=== PATIENT | female | born 1945 | race Asian ===

== ENCOUNTER 2016-11-14 02:49 | Emergency (ER) | payer SELFPAY ==
[~2016-11-14] VITALS: Ht 160 cm; Wt 69.4 kg
[~2016-11-14 02:49] MED LIST: APIX5TAB2 PO; DLT180CCR PO; METF-380 PO; OLME1TAB19 PO; SULF1TAB35 PO; TRAM-21 PO
[2016-11-14] MEDS ORDERED: morphine INJ 10 MG/ML 1ML (SYR OR VIAL) IM STA (03:05)
--- NOTE | 2016-11-14 03:30 | ED Upper Extremity ---
General Chief Complaint: Upper Extremity Stated Complaint: RT ARM & HAND PAIN Nursing Triage Note: Brought to ED with family reporting right shouler/arm pain. Hx of 2 months but worsened severely tonight Nursing Sepsis Screen: No Definite Risk Source: patient Exam Limitations: no limitations History of Present Illness Time seen by provider: 03:00 Initial Comments Here with complaint of right arm pain. She has had pain over the last couple of months but it was worse tonight. She did take an ibuprofen at 10 p.m. The pain then worsened and she came here for further evaluation. Denies chest pain , breathing problems, nausea, vomiting or sweating. Believes that this may emanate from the shoulder and radiates down the arm. She has had shoulder problems and had x-ray at her primary care doctor's office that did not show any concerning findings per the family. Denies any recent injury. Onset: this evening Severity: moderate Pain/Injury Location: right shoulder, right arm, right elbow, right forearm Method of Injury: unknown Modifying Factors: Improves With Immobilization, Worse With Movement Allergies and Home Medications Allergies Coded Allergies: No Known Drug Allergies (Unverified , 02/14/14) Home Medications Apixaban 5 Mg Tablet, 5 MG PO BID, #60 Ref 3 Prescribed by: JC CAMACHO on 12/01/14 1030 Diltiazem Hcl 180 Mg Cap, 180 MG PO DAILY, #30 Ref 3 Prescribed by: JC CAMACHO on 12/01/14 1030 Metformin Hcl 1,000 Mg Tablet, 1 EACH PO BID WITH MEALS, (Reported) Constitutional: see HPI, No chills, No fever Respiratory: no symptoms reported, No cough, No short of breath, No wheezing Cardiovascular: No palpitations Gastrointestinal: no symptoms reported, No nausea, No vomiting Musculoskeletal: see HPI, joint pain, joint swelling, muscle pain, muscle stiffness Skin: no symptoms reported Psychiatric/Neurological: No Symptoms Reported Past Gklzaas-Oxchcl-Byrcie Hx Patient Social History Alcohol Use: Denies Use Recreational Drug Use: No Smoking Status: Never a Smoker Recent Foreign Travel: No Contact w/Someone Who Travel: No Recent Infectious Disease Expo: No Recent Hopitalizations: No Immunizations Up To Date Date of Pneumonia Vaccine: Nov 30, 2012 Seasonal Allergies Seasonal Allergies: No Surgeries HX Surgeries: Yes (LYPOMA EXCISED) Surgeries: Lumpectomy Respiratory Hx Respiratory Disorders: No Cardiovascular Hx Cardiac Disorders: Yes Cardiac Disorders: Hypertension, Irregular Heartbeat Neurological Hx Neurological Disorders: No Reproductive System Hx Reproductive Disorders: No Sexually Transmitted Disease: No HIV/AIDS: No Genitourinary Hx Genitourinary Disorders: No Gastrointestinal Hx Gastrointestinal Disorders: No Musculoskeletal Hx Musculoskeletal Disorders: No Endocrine Hx Endocrine Disorders: Yes Endocrine Disorders: Diabetes, Non-Insulin dep HEENT HX ENT Disorders: No Cancer Hx Cancer: No Psychosocial Hx Psychiatric Problems: No Integumentary HX Skin/Integumentary Disorder: No Blood Transfusions Hx Blood Disorders: No Reviewed Nursing Assessment Reviewed/Agree w Nursing PMH: Yes Family Medical History Significant Family History: No Pertinent Family Hx Family Medial History: Hypertension 19 FATHER Physical Exam Vital Signs Vital Sign - Last 12Hours 11/14/16 02:54 Temp 97.6 Pulse 69 Resp 16 B/P (MAP) 179/84 Pulse Ox 95 O2 Delivery Room Air Capillary Refill : Less Than 3 Seconds General Appearance: WD/WN, mild distress HEENT: PERRL/EOMI, pharynx normal Neck: full range of motion, supple Cardiovascular: regular rate, rhythm, no murmur Respiratory: lungs clear, normal breath sounds Gastrointestinal: non tender, soft Back: normal inspection, no CVA tenderness, no vertebral tenderness Shoulder: limited ROM, soft tissue tenderness Elbow/Forearm: limited ROM, soft tissue tenderness Wrist: Yes pain (home dorsiflexion and palmar flexion) Hand: soft tissue tenderness Neurologic/Psychiatric: alert, oriented x 3 Skin: normal color, warm/dry Progress/Results/Core Measures Results/Orders My Orders Orders - RUDDY CARLSON MD Morphine Injection (Morphine Injection (11/14/16 03:05) Vital Signs/I&O Vital Sign - Last 12Hours 11/14/16 11/14/16 02:54 03:12 Temp 97.6 97.6 Pulse 69 Resp 16 B/P (MAP) 179/84 Pulse Ox 95 O2 Delivery Room Air Blood Pressure Mean: 115 Progress Note : Progress Note Seen and evaluated. Morphine 6 mg IM. Monitor patient. 0355: Overall improved. Discharged home with return precautions. Patient verbalize understanding instructions and agreement with plan. Departure Impression Impression: Primary Impression: Right arm pain Disposition: 01 HOME, SELF-CARE Condition: Improved Departure-Patient Inst. Decision time for Depature: 04:01 Referrals: EDWARD DRISCOLL DO (PCP/Family) Primary Care Physician Patient Instructions: Shoulder Pain (DC) Add. Discharge Instructions: All discharge instructions reviewed with patient and/or family. Voiced understanding. You may take ibuprofen 800 mg twice daily as needed for pain. Take other medication for severe pain. Follow-up with your this week for recheck and further evaluation. Return for worse pain, weakness, breathing problems, chest pain, vomiting or other concerns as needed. Scripts Hydrocodone/Acetaminophen (Hydrocodon -Acetaminophen 5-325) 1 Each Tablet 1 EACH PO Q6H Y for PAIN-MODERATE TO SEVERE, #12 TAB 0 Refills Prov: RUDDY CARLSON MD 11/14/16 RUDDY CARLSON MD Nov 14, 2016 03:30
[2016-11-14] MEDS ORDERED: HYDR-3812 PO (04:03)
[2016-11-14 04:47] VITALS: BP 133/71
== END 2016-11-14 04:07 | disposition home or self-care (01) ==
LOC: EDUNIT# 02:49 → ER 02:52
DX: M79.601 Pain in right arm (principal); I10 Essential (primary) hypertension; E11.9 Type 2 diabetes mellitus without complications; Z79.84 Long term (current) use of oral hypoglycemic drugs
CPT/HCPCS: 99282

== ENCOUNTER → 2017-03-27 | Outpatient (CLI) | payer MEDICARE, MEDICAID ==
[~2017-03-27] MED LIST changes: +HYDR-3812 PO
== END ==
LOC: RAD 11:38
PROVIDERS: ATTEND Family Medicine
DX: K29.60 Other gastritis without bleeding (principal); Z53.29 Procedure and treatment not carried out because of patient's decision for other reasons

== ENCOUNTER → 2017-06-08 | Outpatient (CLI) | payer MEDICARE, MEDICAID ==
[~2017-06-08] MED LIST changes: +ACHD5005 PO; +APIX5TAB PO; +CHOL400C9 PO; +CRAN500T2 PO; +DILT180C82 PO; +GLUC100016 PO; -HYDR-3812 PO; +HYDR25TA4 PO; +METF1000 PO; +OMEG-35 PO; +VITA150T PO
[2017-06-08 10:01] LABS: ALANINE AMINOTRANSFERASE 14 U/L (0-55); ALKALINE PHOSPHATASE 26 U/L (40-136); BILIRUBIN,TOTAL 0.4 MG/DL (0.1-1.0); BUN/CREATININE RATIO 32; CALCIUM 9.2 MG/DL (8.5-10.1); CARBON DIOXIDE 27 MMOL/L (21-32); CHLORIDE 106 MMOL/L (98-107); CHOLESTEROL 110 MG/DL (< 200); CREATININE SERUM 0.69 MG/DL (0.60-1.30); GFR ESTIMATED > 60; GLUCOSE 108 MG/DL (70-105); HDL CHOLESTEROL 60 MG/DL (40-60); POTASSIUM 3.8 MMOL/L (3.6-5.0); SODIUM 142 MMOL/L (135-145); TOTAL PROTEIN 6.4 GM/DL (6.4-8.2); TRIGLYCERIDES 27 MG/DL (<150); VLDL CHOLESTEROL 5 MG/DL (5-40)
== END ==
LOC: LAB 09:11
PROVIDERS: ATTEND Internal Medicine Cardiovascular Disease
DX: E13.9 Other specified diabetes mellitus without complications (principal); I10 Essential (primary) hypertension; R07.9 Chest pain, unspecified; I48.0 Paroxysmal atrial fibrillation
CPT/HCPCS: 36415; 80053; 80061; 83036; 84443

== ENCOUNTER 2017-06-09 11:11 | Outpatient (RCR) | payer MEDICARE, MEDICAID | END 2017-07-15 14:53 | disposition home or self-care (01) | PROVIDERS: ATTEND Orthopaedic Surgery | DX: M25.552 Pain in left hip (principal); M47.26 Other spondylosis with radiculopathy, lumbar region ==

== ENCOUNTER → 2017-06-14 | Outpatient (CLI) | payer MEDICARE, MEDICAID ==
[~2017-06-14] VITALS: Ht 165.1 cm; Wt 73.5 kg
[~2017-06-14] MED LIST changes: +CATHETER FLUSH 10 ML SYR IV PRN
[2017-06-14 09:13] VITALS: BP 150/82
--- NOTE | 2017-06-14 13:47 | STRESS TEST ---
DATE OF SERVICE: 06/14/2017 EXERCISE STRESS ECHOCARDIOGRAM REPORT Baseline heart rate is 58, baseline blood pressure 135/71. Baseline EKG is sinus rhythm with no ischemic changes. SUMMARY: The patient started exercising with a baseline heart rate, blood pressure and EKG mentioned above. Occasional PVCs were noted. She was able to exercise for a total of 4 minutes 15 seconds on standard Harshal protocol, achieving maximum heart rate of 130 beats per minute which is 89% of maximum expected heart rate. With peak exercise level, EKG was showing minimal nondiagnostic changes. Blood pressure was up to 211/111. During recovery, heart rate and blood pressure returned to baseline. EKG returned to baseline. The resting and stress images were reviewed and compared in the short axis, horizontal long axis and vertical long axis views. Review of the images showed good radiotracer uptake with typical female pattern. No significant ischemia or infarction. SSS is 3, SDS 1, TID value 1.03. On the gated images, the left ventricle appeared to be normal size with normal contractility. Calculated ejection fraction 76%. CONCLUSION: 1. Good exercise tolerance, a total of 4 minutes 15 seconds on standard Harshal protocol, total of 6 METs achieving 89% of maximum expected heart rate. 2. Occasional PVCs noted during exercise. 3. Minimal nondiagnostic EKG changes with exercise returned to baseline during recovery. 4. Severe hypertensive response to exercise returned to baseline during recovery. 5. Typical female pattern with no significant ischemia or infarction on SPECT images. 6. Normal left ventricular size with normal contractility. Calculated ejection fraction 76%. Job ID: [id number] DocumentID: [id number] Dictated Date: 06/14/2017 10:27:12 Organ Tuner Electronic Date: 06/14/2017 13:02:39 Dictated By: MARIA G SMITH MD
== END ==
LOC: CARD 07:19
PROVIDERS: ATTEND Internal Medicine Cardiovascular Disease
DX: R07.9 Chest pain, unspecified (principal); E11.9 Type 2 diabetes mellitus without complications; I10 Essential (primary) hypertension; I48.0 Paroxysmal atrial fibrillation
CPT/HCPCS: 93306

== ENCOUNTER → 2017-06-14 | Outpatient (CLI) | payer MEDICARE, MEDICAID ==
[~2017-06-14] VITALS: Ht 165.1 cm; Wt 73.5 kg
== END ==
LOC: CARD 07:15
PROVIDERS: ATTEND Internal Medicine Cardiovascular Disease
DX: R07.9 Chest pain, unspecified (principal); E11.9 Type 2 diabetes mellitus without complications; I10 Essential (primary) hypertension; I48.0 Paroxysmal atrial fibrillation
CPT/HCPCS: 78452; 93017

== ENCOUNTER → 2019-03-14 | Outpatient (CLI) | payer MEDICARE, MEDICAID ==
[~2019-03-14] MED LIST changes: -CATHETER FLUSH 10 ML SYR IV PRN; +METF-399 PO; -METF1000 PO
--- NOTE | 2019-03-14 11:11 | Diagnostic Imaging Report ---
INDICATION: Postmenopausal state, screening for osteoporosis COMPARISON: 04/09/2016 FINDINGS: AP Spine L1-L4: [BMD (g/cm2): 1.255] [T-Score: .5] [Z-Score: na] [BMD Previous: 1.264] [BMD % Change: -0.7] LT Hip Neck: [BMD (g/cm2): 0.844] [T-Score: -1.3] [Z-Score: na] LT Hip Total: [BMD (g/cm2):0.844] [T-Score:-1.3] [Z-Score: na] [BMD Previous: 0.825] [BMD % Change: 2.3] RT Hip Neck: [BMD (g/cm2):0.816] [T-Score:-1.6] [Z-Score:na] RT Hip Total: [BMD (g/cm2):0.835] [T-score:-1.4] [Z-Score:na] [BMD Previous:0.838] [BMD % Change:-0.4] *Indicates significant change from prior examination based on 95% confidence level. World Health Organization criteria for BMD interpretation classify patients as Normal (T-score at or above -1.0), Osteopenic (T-score between -1.0 and -2.5) or Osteoporotic (T-score at or below -2.5). LIMITATIONS AND MODIFICATION: None. FRACTURE RISK (FRAX SCORE): The ten year probability of (%): Major Osteoporotic Fracture: [10.4] Hip Fracture: [2.3] IMPRESSION: 1. Osteopenia (Low bone mass). 2. No significant change in bone mineral density since prior examination. 3. See below National Osteoporosis Foundation guidelines on when to potentially initiate pharmacologic therapy. Based on the National Osteoporosis Foundation Guidelines, pharmacologic treatment should be initiated in any of the following, unless clinical conditions suggest otherwise: * Any patient with prior fragility fracture of the hip or vertebrae. A spine fracture indicates 5X risk for subsequent spine fracture and 2X risk for subsequent hip fracture. * Osteoporosis (T-score <-2.5). * Postmenopausal women and men age 50 and older with low bone mass/osteopenia (T-score between -1.0 and -2.5) by DXA and 10-year major osteoporotic fracture greater than 20% or a 10-year probability of hip fracture greater than 3%. These fracture risks are supplied above in the FRAX score, if applicable. * Clinician judgement and/or patient preferences may indicate treatment for people with 10-year fracture probabilities above or below these levels. Dictated by: Dictated on workstation # [id number]
== END ==
LOC: RAD 10:15
PROVIDERS: ATTEND Nurse Practitioner Family
DX: Z13.820 Encounter for screening for osteoporosis (principal); M85.89 Other specified disorders of bone density and structure, multiple sites; M89.49 Other hypertrophic osteoarthropathy, multiple sites; Z78.0 Asymptomatic menopausal state
CPT/HCPCS: 77080

== ENCOUNTER → 2020-05-09 | Outpatient (CLI) | payer MEDICARE, MEDICAID ==
[2020-05-09 16:02] LABS: HEMOGLOBIN 10.8 g/dL (11.5-16.0); MEAN PLATELET VOLUME 11.1 fL (9.0-12.2); WHITE BLOOD COUNT 8.6 10^3/uL (4.3-11.0)
[2020-05-09 16:19] LABS: ALANINE AMINOTRANSFERASE 16 U/L (0-55); ALBUMIN 4.5 GM/DL (3.2-4.5); ALKALINE PHOSPHATASE 33 U/L (40-136); BILIRUBIN,TOTAL 0.3 MG/DL (0.1-1.0); BUN/CREATININE RATIO 21; CALCIUM 9.6 MG/DL (8.5-10.1); CARBON DIOXIDE 32 MMOL/L (21-32); CHLORIDE 103 MMOL/L (98-107); CREATININE SERUM 0.76 MG/DL (0.60-1.30); GFR ESTIMATED > 60; GLUCOSE 101 MG/DL (70-105); POTASSIUM 3.5 MMOL/L (3.6-5.0); SODIUM 142 MMOL/L (135-145); TOTAL PROTEIN 7.4 GM/DL (6.4-8.2)
== END ==
LOC: CARD 15:42
PROVIDERS: ATTEND Internal Medicine Cardiovascular Disease
DX: I08.3 Combined rheumatic disorders of mitral, aortic and tricuspid valves (principal); I48.0 Paroxysmal atrial fibrillation
CPT/HCPCS: 36415; 80053; 84443; 85027; 93306

== ENCOUNTER → 2020-06-17 | Outpatient (CLI) | payer MEDICARE, MEDICAID | LOC: LABNPT 05:25 | PROVIDERS: ATTEND Internal Medicine Cardiovascular Disease | DX: Z01.89 Encounter for other specified special examinations (principal); Z20.822 Contact with and (suspected) exposure to COVID-19 | CPT/HCPCS: 87635 ==

== ENCOUNTER → 2020-06-19 | Day surgery (SDC) | payer MEDICARE, MEDICAID ==
[2020-06-19] VITALS (7 sets, daily range): BP systolic 114–136; BP diastolic 72–96
[~2020-06-19] VITALS: Ht 162.6 cm; Wt 73.0 kg
[~2020-06-19] MED LIST changes: +ASCO500T71 PO; +CHOL100048 PO; +DILT120C88 PO; +FERR-84 PO; +FISH1CAP15 PO; +FLEC100T PO; +FLEC50TA PO; +GLUC1CAP37 PO; +LIDOCAINE 2% VISCOUS 15 ML UDC ONE; +MAGN400T39 PO; +MELO15TA39 PO; +NS IV 1000 ML 1,000 ML IV SCH; +NS IV 1000 ML 1,000 ML ONE; +PANT40TA52 PO; +ZINC50TA11 PO
[2020-06-19 10:44] LABS: HEMOGLOBIN 11.6 g/dL (11.5-16.0); MEAN PLATELET VOLUME 11.7 fL (9.0-12.2); WHITE BLOOD COUNT 6.3 10^3/uL (4.3-11.0)
[2020-06-19 10:58] LABS: ALBUMIN 4.4 GM/DL (3.2-4.5); CHLORIDE 106 MMOL/L (98-107); INR 1.1 (0.8-1.4); POTASSIUM 4.1 MMOL/L (3.6-5.0); PROTHROMBIN TIME PATIENT 14.9 SEC (12.2-14.7); SODIUM 141 MMOL/L (135-145)
--- NOTE | 2020-06-19 10:58 | Diagnostic Imaging Report ---
INDICATION: Pre-heart catheterization. TIME OF EXAM: 10:48 AM Correlation is made with prior chest 11/30/2014. FINDINGS: Heart is enlarged. Lungs are clear. No infiltrate or failure is detected. The pulmonary vascularity is normal. No effusion or pneumothorax is identified. IMPRESSION: Cardiomegaly. No acute cardiopulmonary process is detected. Dictated by: Dictated on workstation # [id number]
[2020-06-19 10:59] LABS: CALCIUM 9.5 MG/DL (8.5-10.1)
[2020-06-19 11:00] LABS: TRIGLYCERIDES 26 MG/DL (<150); VLDL CHOLESTEROL 5 MG/DL (5-40)
[2020-06-19 11:01] LABS: GLUCOSE 110 MG/DL (70-105); TOTAL PROTEIN 7.2 GM/DL (6.4-8.2)
[2020-06-19 11:02] LABS: CARBON DIOXIDE 28 MMOL/L (21-32)
[2020-06-19 11:03] LABS: BILIRUBIN,TOTAL 0.4 MG/DL (0.1-1.0)
[2020-06-19 11:04] LABS: ALKALINE PHOSPHATASE 39 U/L (40-136); CREATININE SERUM 0.79 MG/DL (0.60-1.30); GFR ESTIMATED > 60
[2020-06-19 11:05] LABS: CHOLESTEROL 115 MG/DL (< 200)
[2020-06-19 11:06] LABS: BUN/CREATININE RATIO 28
[2020-06-19 11:07] LABS: ALANINE AMINOTRANSFERASE 19 U/L (0-55); HDL CHOLESTEROL 66 MG/DL (40-60)
--- NOTE | 2020-06-19 11:26 | NUR ---
SPOKE WITH THE PT AND HER AND CALLED MIREYA AND LISBETH TO COMPLETE THE MED REC 04-26-2020 HCTZ 25MG #90/90DS 04-26-2020 PANTOPRAZOLE 40MG #90/90DS 04-26-2020 METFORMIN 1000MG #180 04-26-2020 MELOXICAM 15MG #90/90DS 05-09-2020 DILTIAZEM ER 120MG #60/30DS 06-10-2020 FLECAINIDE 50MG #60/3D0S METFORMIN 1000MG- DIRECTIONS ARE 1 TAB BID BUT ACCORDING TO THE PT SHE ONLY TAKES A DOSE IF HE BLOOD SUGAR IS OVER 125 OTC MEDS: GLUCOSAMINE/CHONDROITIN FISH OIL VIT C VIT D3 ZINC MAGNESIUM IRON
--- NOTE | 2020-06-19 11:34 | Anesthesia-General Post-Op ---
MAC Patient Condition Mental Status/LOC: Same as Preop Cardiovascular: Satisfactory Nausea/Vomiting: Absent Respiratory: Satisfactory Pain: Controlled Complications: Absent Post Op Complications Complications None Follow Up Care/Instructions Patient Instructions None needed. Anesthesiology Discharge Order Discharge Order Patient is doing well, no complaints, stable vital signs, no apparent adverse anesthesia problems. CASEY WALDRON DO Jun 19, 2020 11:34
--- NOTE | 2020-06-19 11:44 | Discharge Inst-Cardiology ---
Discharge Inst-Cardiac Problems Reviewed?: Yes Discharge Medications Continued Medications: Apixaban (Eliquis) 5 Mg Tablet 5 MG PO BID, TAB Ascorbic Acid (Vitamin C) 500 Mg Tab.chew 500 MG PO DAILY, TAB Cholecalciferol (Vitamin D3) (Vitamin D3) 25 Mcg Capsule 25 MCG PO DAILY, CAP Diltiazem HCl (Diltiazem 24Hr Cd) 120 Mg Cap.er.24h 120 MG PO BID, CAP Ferrous Sulfate (Iron) 325 Mg Tablet 325 MG PO DAILY, TAB Fish Oil/Dha/Epa (Fish Oil 1,200 mg Fish Oil) 1 Each Capsule 1 EACH PO DAILY, CAP Flecainide Acetate (Flecainide Acetate) 50 Mg Tablet 50 MG PO Q12H, TAB Glucosa Arias 2Kcl/Chondroitin Arias (Glucosamine & Chondroitin Cap) 1 Each Capsule 1 EACH PO DAILY, CAP Hydrochlorothiazide (Hydrochlorothiazide) 25 Mg Tablet 25 MG PO DAILY, TAB Magnesium Oxide (Magnesium) 400 Mg Tablet 400 MG PO WEEK, TAB Meloxicam (Meloxicam) 15 Mg Tablet 15 MG PO DAILY, TAB Metformin HCl (Metformin HCl) 1,000 Mg Tablet 1000 MG PO BID PRN for BLOOD SUGAR OVER 125, TAB Pantoprazole Sodium (Pantoprazole Sodium) 40 Mg Tablet.dr 40 MG PO DAILY, TAB Zinc Gluconate (Zinc) 50 Mg Tablet 50 MG PO DAILY, TAB Patient Instructions Patient Instructions: Appointment with Dr. Emanuel's office in 2-4 weeks Activity & Diet Discharge Diet: Cardiac Diet Drink 6-8 Glasses/Fluids/Day: Yes Activity as Tolerated: Yes MARIA G EMANUEL MD Jun 19, 2020 11:44
--- NOTE | 2020-06-19 11:45 | Cardioversion ---
Cardioversion PROCEDURE PHYSICIAN: Maria G Emanuel DATE OF PROCEDURE: 06/19/20 DIRECT EXTERNAL ELECTRICAL CARDIOVERSION: Indications: Atrial Fibrillation with rapid ventricular rate Preoperative diagnoses: Atrial Fibrillation with rapid ventricular rate Postoperative diagnosis: Sinus rhythm, Successful Electrical Cardioversion Anesthesia: By Anesthesia services Complications: None Specimen: None Contrast: 0 Flouroscopy: none Procedure Details: The patient was brought the hoisting laborer after informed consent was taken, all the risks and complications were explained including the risk of stroke. Electrical cardioversion was carried out with anesthesia support with propofol. 150 joules of synchronized shock was delivered through external patches which promptly restored sinus rhythm. The patient tolerated the procedure well. Conclusions: Successful electrical cardioversion with no complication Final Diagnosis: Paroxysmal atrial fibrillation Palpitation Hypertension Diabetes mellitus MARIA G EMANUEL MD Jun 19, 2020 11:45
== END ==
LOC: SDC 09:45
PROVIDERS: ATTEND Internal Medicine Cardiovascular Disease
DX: I48.0 Paroxysmal atrial fibrillation (principal); I10 Essential (primary) hypertension; E11.9 Type 2 diabetes mellitus without complications; E66.9 Obesity, unspecified; Z68.27 Body mass index [BMI] 27.0-27.9, adult; Z79.899 Other long term (current) drug therapy; Z79.01 Long term (current) use of anticoagulants; Z79.84 Long term (current) use of oral hypoglycemic drugs
CPT/HCPCS: 36415; 71045; 80053; 80061; 85027; 85610; 85730; 87081; 92960; 93005; 93312

== ENCOUNTER → 2020-09-11 | Outpatient (CLI) | payer MEDICARE, MEDICAID ==
[~2020-09-11] MED LIST changes: -LIDOCAINE 2% VISCOUS 15 ML UDC ONE; -NS IV 1000 ML 1,000 ML IV SCH; -NS IV 1000 ML 1,000 ML ONE
== END ==
LOC: LABNPT 06:33
PROVIDERS: ATTEND Internal Medicine Cardiovascular Disease
DX: Z53.9 Procedure and treatment not carried out, unspecified reason (principal)

== ENCOUNTER → 2021-03-18 | Outpatient (CLI) | payer MEDICARE, MEDICAID ==
[~2021-03-18] MED LIST changes: -CRAN500T2 PO; +CRAN500T3 PO
--- NOTE | 2021-03-18 13:51 | Diagnostic Imaging Report ---
INDICATION: Postmenopausal. COMPARISON: 03/14/2019. FINDINGS: The bone mineral density of the spine, hips, and femoral necks was measured. The total T-score for the spine is 1.1. On the prior exam, the T-score was 0.5. The total T-score for the left hip is -1.2 and for the right hip -1.4. On the previous exam, the respected T-scores were -1.3 and -1.4. The T-score for the left femoral neck is -1.1 and for the right -1.6. Previously the T-scores were -1.2 and -1.6. AP Spine L1-L4: [BMD (g/cm2): 1.333] [T-Score: 1.1] [Z-Score: NA] [BMD Previous: 1.255] [BMD % Change: 6.2] LT Hip Neck: [BMD (g/cm2): 0.878] [T-Score: -1.1] [Z-Score: NA] LT Hip Total: [BMD (g/cm2):0.856] [T-Score:-1.2] [Z-Score: NA] [BMD Previous: 0.844] [BMD % Change: 2.3] RT Hip Neck: [BMD (g/cm2):0.814] [T-Score:-1.6] [Z-Score:NA] RT Hip Total: [BMD (g/cm2):0.826] [T-score:-1.4] [Z-Score:NA] [BMD Previous:0.835] [BMD % Change:-0.4] *Indicates significant change from prior examination based on 95% confidence level. World Health Organization criteria for BMD interpretation classify patients as Normal (T-score at or above -1.0), Osteopenic (T-score between -1.0 and -2.5) or Osteoporotic (T-score at or below -2.5). LIMITATIONS AND MODIFICATION: None. FRACTURE RISK (FRAX SCORE): The ten year probability of (%): Major Osteoporotic Fracture: [13.1] Hip Fracture: [3.1] IMPRESSION: 1. The bone mineral density of the spine has increased since the prior exam. The T-score is well within normal limits. 2. The bone mineral density of the hips and femoral necks has not changed significantly. These values do indicate osteopenia. 3. See below National Osteoporosis Foundation guidelines on when to potentially initiate pharmacologic therapy. Based on the National Osteoporosis Foundation Guidelines, pharmacologic treatment should be initiated in any of the following, unless clinical conditions suggest otherwise: * Any patient with prior fragility fracture of the hip or vertebrae. A spine fracture indicates 5X risk for subsequent spine fracture and 2X risk for subsequent hip fracture. * Osteoporosis (T-score <-2.5). * Postmenopausal women and men age 50 and older with low bone mass/osteopenia (T-score between -1.0 and -2.5) by DXA and 10-year major osteoporotic fracture greater than 20% or a 10-year probability of hip fracture greater than 3%. These fracture risks are supplied above in the FRAX score, if applicable. * Clinician judgement and/or patient preferences may indicate treatment for people with 10-year fracture probabilities above or below these levels. Dictated by: Dictated on workstation # [id number]
== END ==
LOC: RAD 11:10
PROVIDERS: ATTEND Family Medicine
DX: Z78.0 Asymptomatic menopausal state (principal)
CPT/HCPCS: 77080

== ENCOUNTER → 2021-05-02 | Outpatient (CLI) | payer MEDICARE, MEDICAID ==
--- NOTE | 2021-05-02 14:39 | Diagnostic Imaging Report ---
EXAMINATION: Chest 2 view HISTORY: Cough COMPARISON: 06/19/2020 FINDINGS: The lungs are clear without edema or pneumonia. No pleural effusion or pneumothorax. Heart size is normal. IMPRESSION: 1. Clear lungs. Dictated by: Dictated on workstation # [id number]
== END ==
LOC: RAD 13:36
PROVIDERS: ATTEND Podiatrist Foot & Ankle Surgery
DX: R05.3 Chronic cough (principal)
CPT/HCPCS: 71046

== ENCOUNTER → 2021-09-17 | Outpatient (CLI) | payer MEDICARE, MEDICAID ==
[~2021-09-17] MED LIST changes: +CATHETER FLUSH 10 ML SYR IVP PRN; +REGADENOSON 0.4 MG/5 ML SYR (LEXISCAN) IV ONE
[2021-09-17 10:04] VITALS: BP 145/83
--- NOTE | 2021-09-17 12:46 | Cardiology Stress Test Report ---
Stress Test Report Date of Procedure/Referring: Date of Procedure: Sep 17, 2021 PCP Ashok Emanuel MD Admitting Physician Charli Pierce MD Indications: CP Baseline Heart Rate: 57 Baseline Blood Pressure: Blood Pressure Systolic: 145 Blood Pressure Diastolic: 83 Baseline Vitals Vital Signs Date Time Temp Pulse Resp B/P (MAP) Pulse Ox O2 Delivery O2 Flow Rate FiO2 09/17/21 10:04 57 145/83 (103) Baseline EKG: Baseline EKG: NSR Summary After explaining the procedure to the patient, she signed a consent and then brought to the stress nuclear laboratory. Patient received 0.4 mg Lexiscan for stress test, ECG, heart rate and blood pressure were monitored continuously. Resting and stress dose of radio tracer were injected, imaging was acquired and reviewed in short axis, horizontal long axis and vertical long axis views. TID: 0.97 SSS: 0 SDS: 0 EF: 77 1. Patient tolerated Lexiscan well 2. No significant ischemia or infarction on SPECT images 3. Normal left ventricular size, EF 77% Copy Copies To 1: CHARLI PIERCE MD, BASHAR J MD Sep 17, 2021 12:46
== END ==
LOC: CARD 08:30
PROVIDERS: ATTEND Internal Medicine Cardiovascular Disease
DX: I11.9 Hypertensive heart disease without heart failure (principal); I08.3 Combined rheumatic disorders of mitral, aortic and tricuspid valves; I25.10 Atherosclerotic heart disease of native coronary artery without angina pectoris
CPT/HCPCS: 78452; 93017; 93306; A9502

== ENCOUNTER 2022-01-21 05:40 | Outpatient (CLI) | payer MEDICARE, MEDICAID ==
[~2022-01-21] VITALS: Ht 157.5 cm; Wt 70.9 kg
[~2022-01-21 05:40] MED LIST changes: -CATHETER FLUSH 10 ML SYR IVP PRN; -CRAN500T3 PO; +CRAN500T4 PO; -REGADENOSON 0.4 MG/5 ML SYR (LEXISCAN) IV ONE
[2022-01-26] MEDS ORDERED: LOSA50TA63 PO (09:40)
[2022-01-26] MEDS ORDERED: DILT180C67 PO (09:40)
[2022-01-26] MEDS ORDERED: MELO7.5T46 PO (09:40)
== END 2022-01-26 09:43 ==
LOC: PREOP 05:40
PROVIDERS: ATTEND Specialist
DX: Z01.818 Encounter for other preprocedural examination (principal); H25.9 Unspecified age-related cataract

== ENCOUNTER 2022-01-30 06:12 | Day surgery (SDC) | payer MEDICARE, MEDICAID ==
[~2022-01-30] VITALS: Ht 157.5 cm; Wt 70.9 kg
[~2022-01-30 06:12] MED LIST changes: +DILT180C67 PO; +LOSA50TA63 PO; +MELO7.5T46 PO
[2022-01-30] MEDS ORDERED: POVIDONE (BETADINE) OPHTH SOLN 5% 30 ML OP ONE (06:15)
[2022-01-30] MEDS ORDERED: MOXIFLOXACIN OPHTH SOLN 5 MG/ML 0.3 ML SYRINGE OP ONE (06:15)
[2022-01-30] MEDS ORDERED: acetaZOLAMIDE ER 500 MG CAP (DIAMOX SEQUELS) PO ONE (06:15)
[2022-01-30] MEDS ORDERED: TIMOLOL MALEATE 0.5% 5 ML (TIMOPTIC) BTL OU PRN (06:15)
[2022-01-30] MEDS: TETRACAINE 0.5% OPHTH SOLN 4 ML BTL (SINGLE DOSE ONLY) OU PRN ×4 (06:32→06:50)
[2022-01-30 06:36] VITALS: BP 162/86
[2022-01-30] MEDS: PHENYLEPHRINE 10% OPHTH (NEO-SYN) 5 ML BTL OU SCH ×3 (06:38→06:50)
[2022-01-30] MEDS: TROPICAMIDE 1% OPH SOLN (MYDRIACYL) 15 ML BTL OP SCH ×3 (06:38→06:50)
--- NOTE | 2022-01-30 06:41 | Ophthalmologist Pre-Op Note ---
Pre-Operative Progress Note H&P Reviewed The H&P was reviewed, patient examined and no changes noted. Date H&P Reviewed: Jan 30, 2022 Time H&P Reviewed: 06:41 Pre-Op Dx Cataract, Left Eye ALISHA MONACO MD Jan 30, 2022 06:41
[2022-01-30] MEDS ORDERED: MIDAZOLAM 2 MG/2 ML (VERSED) VIAL ONE (06:50)
--- NOTE | 2022-01-30 07:13 | Ophthalmology Operative Report ---
Cataract removal/placement IOL PREOPERATIVE DIAGNOSIS: Cataract Left Eye POSTOPERATIVE DIAGNOSIS: Cataract Left Eye PROCEDURE: Cataract removal and placement of posterior chamber implant, left eye SURGEON: Martell Monaco ANESTHESIA: Topical with sedation COMPLICATIONS: None ESTIMATED BLOOD LOSS: Minimal DESCRIPTION OF PROCEDURE: After proper informed consent was obtained, the patient, a 76 female, was taken to the Operating Room and the left eye was anesthetized with tetracaine. The left eye was then prepped and draped in the usual manner. A wire lid speculum was placed. A paracentesis was made at the left hand position. Preservative free lidocaine was injected into the anterior chamber followed by viscoelastic. A clear corneal incision was made in the temporal position. A capsulorrhexis was preformed and the central nuclear and cortical material were removed. The posterior capsule was polished and an Obie 22.0 [id number] was placed into the capsular bag. The residual viscoelastic was aspirated and balanced saline solution was injected into the anterior chamber. Moxifloxacin was injected into the anterior chamber. The wound was checked and found to be water tight. The patient tolerated the procedure well without complications. MARTELL MONACO MD Jan 30, 2022 07:13
[2022-01-30 07:26] VITALS: BP 150/79
--- NOTE | 2022-01-30 12:34 | Anesthesia-General Post-Op ---
MAC Patient Condition Mental Status/LOC: Same as Preop Cardiovascular: Satisfactory Nausea/Vomiting: Absent Respiratory: Satisfactory Pain: Controlled Complications: Absent Post Op Complications Complications None Follow Up Care/Instructions Patient Instructions None needed. Anesthesiology Discharge Order Discharge Order Patient is doing well, no complaints, stable vital signs, no apparent adverse anesthesia problems. No complications reported per nursing. KAT MORAN CRNA Jan 30, 2022 12:34
== END 2022-01-30 07:27 | disposition home or self-care (01) ==
LOC: SDC 06:12
PROVIDERS: ATTEND Specialist
DX: H25.9 Unspecified age-related cataract (principal); R73.03 Prediabetes; Z79.01 Long term (current) use of anticoagulants
CPT/HCPCS: 66984; V2632

== ENCOUNTER 2022-05-09 13:05 | Emergency (ER) | payer MEDICARE, MEDICAID ==
[2022-05-09] MEDS ORDERED: NITROGLYCERIN 0.4 MG SL TABS BTL 25'S SL PRN (13:15)
--- NOTE | 2022-05-09 13:20 | ED Chest Pain ---
General Chief Complaint: Chest Pain Stated Complaint: SUDDEN CHEST PAIN Source: patient, family Exam Limitations: language barrier History of Present Illness Date Seen by Provider: May 09, 2022 Time Seen by Provider: 13:09 Initial Comments Patient is a 77-year-old female with a history of atrial fibrillation and hypertension who presents to the emergency department with her by private vehicle chief complaint of substernal chest pain. Initially "8" out of 10 pain. Patient states she had sudden onset of chest pain approximately 15 minutes prior to arrival. She describes it as a "pressure". It does not radiate. She feels a little short of breath. She is not nauseous. She is not sweaty. She has no history of known coronary artery disease. She is chronically anticoagulated on Eliquis for her A. fib. Currently in sinus rhyth m. No recent illnesses, fevers, chills, cough or congestion. She states that she did not sleep well last night. She denies any problems with bowel or bladder. She has not taken anything for the pain. All other review of systems reviewed and negative except as stated. Timing/Duration: 1/2 hour Severity/Quality: moderate, pressure Location: substernal Radiation: no radiation Activities at Onset: activity (cooking) ASA po NEW CAR SALESPERSON: No NTG SL NEW CAR SALESPERSON: No Associated Symptoms: shortness of breath Allergies and Home Medications Allergies Coded Allergies: No Known Drug Allergies (Unverified , 04/09/17) Patient Home Medication List Home Medication List Reviewed: Yes Apixaban (Eliquis) 5 Mg Tablet, 5 MG PO BID, (Reported) Entered as Reported by: KINDRA CLEMENTE on 06/19/20 1111 Diltiazem HCl (Cardizem Cd) 180 Mg Cap.er.24h, 180 MG PO DAILY, (Reported) Entered as Reported by: PATITO WEBSTER on 01/26/22 0940 Flecainide Acetate (Flecainide Acetate) 50 Mg Tablet, 50 MG PO Q12H, (Reported) Entered as Reported by: KINDRA CLEMENTE on 06/19/20 1111 Losartan Potassium (Losartan Potassium) 50 Mg Tablet, 50 MG PO DAILY, (Reported) Entered as Reported by: PATITO WEBSTER on 01/26/22 0940 Meloxicam (Meloxicam) 7.5 Mg Tablet, 7.5 MG PO DAILY, (Reported) Entered as Reported by: PATITO WEBSTER on 01/26/22 0940 Review of Systems Review of Systems Constitutional: see HPI EENTM: No Symptoms Reported Respiratory: Shortness of Air Cardiovascular: Chest Pain Gastrointestinal: No Symptoms Reported Genitourinary: No Symptoms Reported Musculoskeletal: no symptoms reported Skin: no symptoms reported All Other Systems Reviewed Negative Unless Noted: Yes Past Zvszzzm-Xexqfk-Mfnvnl Hx Patient Social History Tobacco Use?: No Use of E-Cig and/or Vaping dev: No Substance use?: No Alcohol Use?: No Pt feels they are or have been: No Immunizations Up To Date Tetanus Booster (TDap): Unknown Influenza Vaccine Up-to-Date: Yes; Up-to-Date First/Initial COVID19 Vaccinat: YES Second COVID19 Vaccination Goyo: YES Seasonal Allergies Seasonal Allergies: No Past Medical History Surgery/Hospitalization HX: EYE SURGERY Surgeries: Yes (LYPOMA EXCISED) Lumpectomy Respiratory: No Cardiac: Yes Atrial Fibrillation, Hypertension, Irregular Heartbeat Neurological: No Reproductive Disorders: No Sexually Transmitted Disease: No HIV/AIDS: No Genitourinary: No Gastrointestinal: Yes (EPIGASTRIC PAIN, HX ULCER) Gastroesophageal Reflux, Hiatal Hernia, Ulcer Musculoskeletal: No Endocrine: Yes Diabetes, Non-Insulin dep HEENT: No Loss of Vision: Bilateral Hearing Impairment: Denies Cancer: No Did You Recieve Any Treatments: No Psychosocial: No Integumentary: No Blood Disorders: No Adverse Reaction/Blood Tranf: No Family Medical History Hypertension 19 FATHER No Pertinent Family Hx Physical Exam Vital Signs Vital Signs - First Documented 05/09/22 13:08 Pulse 72 Resp 23 B/P (MAP) 181/89 (119) Capillary Refill : Height, Weight, BMI Height: 5'5.00" Weight: 162lbs. 0.0oz. 73.253184yn; 27.61 BMI Method:Stated General Appearance: No Apparent Distress, WD/WN HEENT: PERRL/EOMI Neck: Normal Inspection Respiratory: Lungs Clear, Normal Breath Sounds, No Accessory Muscle Use, No Respiratory Distress Cardiovascular: Regular Rate, Rhythm, Normal Peripheral Pulses (2+ radial bilaterally) Gastrointestinal: Normal Bowel Sounds, Non Tender, Soft Extremity: Normal Capillary Refill, Normal Inspection, Normal Range of Motion, Non Tender, No Calf Tenderness, No Pedal Edema Neurologic/Psychiatric: Alert, Oriented x3, No Motor/Sensory Deficits Skin: Normal Color, Warm/Dry Progress/Results/Core Measures Results/Orders Lab Results Laboratory Tests Test 05/09/22 13:12 05/09/22 16:20 Range/Units White Blood Count 9.9 4.3-11.0 10^3/uL Red Blood Count 4.53 3.80-5.11 10^6/uL Hemoglobin 13.0 11.5-16.0 g/dL Hematocrit 39 35-52 % Mean Corpuscular Volume 86 80-99 fL Mean Corpuscular Hemoglobin 29 25-34 pg Mean Corpuscular Hemoglobin Concent 33 32-36 g/dL Red Cell Distribution Width 12.7 10.0-14.5 % Platelet Count 226 130-400 10^3/uL Mean Platelet Volume 11.1 9.0-12.2 fL Immature Granulocyte % (Auto) 0 % Neutrophils (%) (Auto) 57 42-75 % Lymphocytes (%) (Auto) 34 12-44 % Monocytes (%) (Auto) 6 0-12 % Eosinophils (%) (Auto) 2 0-10 % Basophils (%) (Auto) 1 0-10 % Neutrophils # (Auto) 5.7 1.8-7.8 10^3/uL Lymphocytes # (Auto) 3.3 1.0-4.0 10^3/uL Monocytes # (Auto) 0.6 0.0-1.0 10^3/uL Eosinophils # (Auto) 0.2 0.0-0.3 10^3/uL Basophils # (Auto) 0.1 0.0-0.1 10^3/uL Immature Granulocyte # (Auto) 0.0 0.0-0.1 10^3/uL Prothrombin Time 14.4 12.2-14.7 SEC INR Comment 1.1 0.8-1.4 Activated Partial Thromboplast Time 40 H 24-35 SEC Sodium Level 141 135-145 MMOL/L Potassium Level 3.7 3.6-5.0 MMOL/L Chloride Level 106 98-107 MMOL/L Carbon Dioxide Level 23 21-32 MMOL/L Anion Gap 12 5-14 MMOL/L Blood Urea Nitrogen 18 7-18 MG/DL Creatinine 0.71 0.60-1.30 MG/DL Estimat Glomerular Filtration Rate 86 BUN/Creatinine Ratio 25 Glucose Level 109 H 70-105 MG/DL Calcium Level 9.9 8.5-10.1 MG/DL Corrected Calcium 9.5 8.5-10.1 MG/DL Magnesium Level 2.0 1.6-2.4 MG/DL Total Bilirubin 0.3 0.1-1.0 MG/DL Aspartate Amino Transf (AST/SGOT) 18 5-34 U/L Alanine Aminotransferase (ALT/SGPT) 17 0-55 U/L Alkaline Phosphatase 33 L 40-136 U/L Myoglobin 39.1 10.0-92.0 NG/ML Troponin I < 0.028 < 0.028 <0.028 NG/ML Total Protein 7.4 6.4-8.2 GM/DL Albumin 4.5 3.2-4.5 GM/DL My Orders Orders - VANESSA DUENAS MD Ekg Tracing (05/09/22 13:08) Cbc With Automated Diff (05/09/22 13:15) Magnesium (05/09/22 13:15) Chest 1 View, Ap/Pa Only (05/09/22 13:15) Ekg Tracing (05/09/22 13:15) Comprehensive Metabolic Panel (05/09/22 13:15) Myoglobin Serum (05/09/22 13:15) Protime With Inr (05/09/22 13:15) Partial Thromboplastin Time (05/09/22 13:15) O2 (05/09/22 13:15) Monitor-Rhythm Ecg Trace Only (05/09/22 13:15) Lipid Panel (05/10/22 06:00) Ed Iv/Invasive Line Start (05/09/22 13:15) Troponin I Andrew (05/09/22 13:15) Nitroglycerin 0.4 Mg Btl 25's (Nitrostat (05/09/22 13:15) Troponin I Mcpherson (05/09/22 16:15) Vital Signs/I&O 05/09/22 13:08 Pulse 72 Resp 23 B/P (MAP) 181/89 (119) Progress Progress Note #1: Time: 13:32 Progress Note no pain at this time - will hold off on nitro. Patient's did state that he gave her 1 SL ntg NEW CAR SALESPERSON. Progress Note #2: Time: 14:46 Progress Note Patient is still completely asymptomatic. VSS. Labs reviewed and CXR. All WNL. Will repeat 3 hour troponin. Initial ECG Impression Date: May 09, 2022 Initial ECG Impression Time: 13:12 Initial ECG Rate: 65 Initial ECG Rhythm: Normal Sinus Initial ECG Intervals: Normal Initial ECG Intervals MD interval 173 QRS 101 QTC 426 Comment No ectopy is noted, normal EKG without ST segment elevation or depression Diagnostic Imaging Diagonstic Imaging: Xray Plain Films/CT/US/NM/MRI: chest Comments [facility] [place], [place] NAME: LUZ SIMS [facility] REC#: [id number] PT STATUS: REG ER : 1945 PHYSICIAN: VANESSA DUENAS MD ADMIT DATE: 05/09/22/ER Draft Date of Exam:05/09/22 CHEST 1 VIEW, AP/PA ONLY INDICATION: Chest pain. COMPARISON: 06/19/2020. FINDINGS: Stable enlargement of the cardiac silhouette without edema or failure. There is a small hiatal hernia. There is no evidence of pneumonia. There is no large effusion. There is no pneumothorax. Pulmonary vascularity is appropriate. IMPRESSION: Stable appearance of the chest. No acute cardiopulmonary process demonstrated. Dictated on workstation # [id number] Dict: 05/09/22 1336 Trans: 05/09/22 1344 CVB [id number] Interpreted by: ROGELIO SAMPSON MD Electronically signed by: Departure Impression Primary Impression: Chest pain Qualified Codes: R07.9 - Chest pain, unspecified Disposition: HOME, SELF-CARE Condition: Improved Departure-Patient Inst. Decision time for Depature: 17:00 Referrals: CHARLI DIAS MD (PCP/Family) Primary Care Physician Patient Instructions: Chest Pain That Is Not Caused by the Heart (DC) Add. Discharge Instructions: Continue your daily medications as prescribed by your primary care provider. Follow-up with your heart doctor as scheduled/needed. If you have any worsening chest pain especially with nausea, shortness of breath, sweating or any other emergent concerning symptoms please come back to the emergency department for reevaluation. Scripts Nitroglycerin (Nitroglycerin) 0.4 Mg Tab.subl 0.4 MG SL NEEDED PRN for chest pain, #60 TAB 1 tablet under the tongue as needed for chest pain. May repeat every 5 minutes to a total of 3 in 24 hours. Prov: VANESSA DUENAS MD 05/09/22 Copy Copies To 1: CHARLI DIAS MD, KATHRYN M MD May 09, 2022 13:20
[2022-05-09 13:21] LABS: BASOPHILS # (AUTO) 0.1 10^3/uL (0.0-0.1); BASOPHILS % (AUTO) 1 % (0-10); EOSINOPHILS # (AUTO) 0.2 10^3/uL (0.0-0.3); EOSINOPHILS % (AUTO) 2 % (0-10); HEMATOCRIT 39 % (35-52); LYMPHOCYTES # (AUTO) 3.3 10^3/uL (1.0-4.0); LYMPHOCYTES % (AUTO) 34 % (12-44); MEAN CORPUSCULAR HEMOGLOBIN 29 pg (25-34); MEAN CORPUSCULAR HGB CONC 33 g/dL (32-36); MEAN CORPUSCULAR VOLUME 86 fL (80-99); MEAN PLATELET VOLUME 11.1 fL (9.0-12.2); MONOCYTES # (AUTO) 0.6 10^3/uL (0.0-1.0); MONOCYTES % (AUTO) 6 % (0-12); NEUTROPHILS # (AUTO) 5.7 10^3/uL (1.8-7.8); NEUTROPHILS % (AUTO) 57 % (42-75); PLATELET COUNT 226 10^3/uL (130-400); WHITE BLOOD COUNT 9.9 10^3/uL (4.3-11.0)
[2022-05-09 13:33] LABS: INR 1.1 (0.8-1.4); PROTHROMBIN TIME PATIENT 14.4 SEC (12.2-14.7)
[2022-05-09 13:39] LABS: ALBUMIN 4.5 GM/DL (3.2-4.5); BILIRUBIN,TOTAL 0.3 MG/DL (0.1-1.0); CALCIUM 9.9 MG/DL (8.5-10.1); CREATININE SERUM 0.71 MG/DL (0.60-1.30); POTASSIUM 3.7 MMOL/L (3.6-5.0); TOTAL PROTEIN 7.4 GM/DL (6.4-8.2)
--- NOTE | 2022-05-09 13:44 | Diagnostic Imaging Report ---
INDICATION: Chest pain. COMPARISON: 06/19/2020. FINDINGS: Stable enlargement of the cardiac silhouette without edema or failure. There is a small hiatal hernia. There is no evidence of pneumonia. There is no large effusion. There is no pneumothorax. Pulmonary vascularity is appropriate. IMPRESSION: Stable appearance of the chest. No acute cardiopulmonary process demonstrated. Dictated by: Dictated on workstation # [id number]
[2022-05-09] MEDS ORDERED: NITR0.4T42 SL (17:10)
[2022-05-09 17:12] VITALS: BP 162/68
== END 2022-05-09 17:14 | disposition home or self-care (01) ==
LOC: EDUNIT# 13:05 → ER 13:07
DX: I48.91 Unspecified atrial fibrillation (principal); Z79.01 Long term (current) use of anticoagulants
CPT/HCPCS: 36415; 71045; 80053; 83735; 83874; 84484; 85025; 85610; 85730; 93005; 93041

== ENCOUNTER → 2022-05-27 | Outpatient (CLI) | payer MEDICARE, MEDICAID ==
[~2022-05-27] VITALS: Ht 160 cm; Wt 71.0 kg
[~2022-05-27] MED LIST changes: +NITR0.4T42 SL; +REGADENOSON 0.4 MG/5 ML SYR (LEXISCAN) IV ONE
[2022-05-27] MEDS: CATHETER FLUSH 10 ML SYR IVP PRN ×2 (06:55→08:09)
[2022-05-27 07:55] VITALS: BP 182/84
--- NOTE | 2022-05-27 10:22 | Cardiology Stress Test Report ---
Stress Test Report Date of Procedure/Referring: Date of Procedure: May 27, 2022 PCP Génesis Pierce MD Admitting Physician Admitting Physician: Attending Physician: Maria G Emanuel MD Indications: CP Baseline Heart Rate: 56 Baseline Blood Pressure: Blood Pressure Systolic: 182 Blood Pressure Diastolic: 84 Baseline Vitals Vital Signs Date Time Temp Pulse Resp B/P (MAP) Pulse Ox O2 Delivery O2 Flow Rate FiO2 05/27/22 07:55 63 20 182/84 (116) Baseline EKG: Baseline EKG: NSR Summary After explaining the procedure to the patient, she signed a consent and then brought to the stress nuclear laboratory. Patient received 0.4 mg Lexiscan for stress test, ECG, heart rate and blood pressure were monitored continuously. Resting and stress dose of radio tracer were injected, imaging was acquired and reviewed in short axis, horizontal long axis and vertical long axis views. TID: 0.97 SSS: 4 SDS: 3 EF: 72 1. Patient tolerated Lexiscan well 2. Breast attenuation with no ischemia or infarction noted on SPECT images 3. Normal left ventricular size, ejection fraction 72% MARIA G EMANUEL MD May 27, 2022 10:22
== END ==
LOC: CARD 06:34
PROVIDERS: ATTEND Internal Medicine Cardiovascular Disease
DX: I10 Essential (primary) hypertension (principal); I25.10 Atherosclerotic heart disease of native coronary artery without angina pectoris; R07.2 Precordial pain
CPT/HCPCS: 78452; 93017

== ENCOUNTER 2022-06-10 08:23 | Day surgery (SDC) | payer MEDICARE, MEDICAID ==
[~2022-06-10] VITALS: Ht 162 cm; Wt 72.3 kg
[2022-06-10] VITALS (11 sets, daily range): BP systolic 103–144; BP diastolic 52–75
[~2022-06-10 08:23] MED LIST changes: -REGADENOSON 0.4 MG/5 ML SYR (LEXISCAN) IV ONE
[2022-06-10] MEDS ORDERED: HEParin (CATH LAB) 2,000 ML IV ONE (08:28)
[2022-06-10] MEDS ORDERED: NS IV 1000 ML 1,000 ML ONE (08:28)
[2022-06-10] MEDS ORDERED: LIDOCAINE 1% INJ 30 ML (XYLOCAINE) VIAL ONE (08:28)
[2022-06-10] MEDS ORDERED: NS IV 1000 ML 1,000 ML IV ONE (08:30)
[2022-06-10 08:57] LABS: HEMATOCRIT 42 % (35-52); HEMOGLOBIN 13.8 g/dL (11.5-16.0); MEAN CORPUSCULAR HEMOGLOBIN 29 pg (25-34); MEAN CORPUSCULAR HGB CONC 33 g/dL (32-36); MEAN CORPUSCULAR VOLUME 87 fL (80-99); MEAN PLATELET VOLUME 11.1 fL (9.0-12.2); PLATELET COUNT 206 10^3/uL (130-400); WHITE BLOOD COUNT 7.2 10^3/uL (4.3-11.0)
--- NOTE | 2022-06-10 09:11 | Diagnostic Imaging Report ---
EXAM: CHEST 1 VIEW, AP/PA ONLY INDICATION: Chest pain. COMPARISON: 05/09/2022. FINDINGS: Normal heart size and central pulmonary vascularity. Lungs are clear. No pleural effusion or pneumothorax. No acute osseous findings. No significant change. IMPRESSION: No acute cardiopulmonary findings. Dictated by: Dictated on workstation # [id number]
[2022-06-10 09:13] LABS: PROTHROMBIN TIME PATIENT 13.7 SEC (12.2-14.7)
[2022-06-10 09:16] LABS: ALANINE AMINOTRANSFERASE 16 U/L (0-55); ALBUMIN 4.6 GM/DL (3.2-4.5); ALKALINE PHOSPHATASE 32 U/L (40-136); BILIRUBIN,TOTAL 0.5 MG/DL (0.1-1.0); BUN/CREATININE RATIO 20; CALCIUM 9.6 MG/DL (8.5-10.1); CARBON DIOXIDE 28 MMOL/L (21-32); CHLORIDE 107 MMOL/L (98-107); CHOLESTEROL 120 MG/DL (< 200); CREATININE SERUM 0.76 MG/DL (0.60-1.30); GFR ESTIMATED 80; GLUCOSE 110 MG/DL (70-105); HDL CHOLESTEROL 66 MG/DL (40-60); POTASSIUM 3.7 MMOL/L (3.6-5.0); SODIUM 142 MMOL/L (135-145); TOTAL PROTEIN 7.5 GM/DL (6.4-8.2); TRIGLYCERIDES 31 MG/DL (<150); VLDL CHOLESTEROL 6 MG/DL (5-40)
[2022-06-10] MEDS ORDERED: NITR0.4T39 SL (09:31)
[2022-06-10] MEDS ORDERED: ZINC50TA11 PO (09:34)
[2022-06-10] MEDS ORDERED: CARB15DR OU (09:34)
[2022-06-10] MEDS ORDERED: ASCO100024 PO (09:34)
[2022-06-10] MEDS ORDERED: PRED5DRO17 OS (09:34)
[2022-06-10] MEDS ORDERED: CHOL200059 PO (09:34)
[2022-06-10] MEDS ORDERED: fentaNYL INJ 100 MCG/2 ML AMP ONE (09:36)
[2022-06-10] MEDS ORDERED: HEParin 1000 UNIT/ML (10ML VIAL) FOR BOLUS ONE (09:36)
[2022-06-10] MEDS ORDERED: NITRO DRIP 25000 MCG/D5W 250 ML IV ONE (09:36)
[2022-06-10] MEDS ORDERED: MIDAZOLAM 5 MG/5 ML (VERSED) VIAL ONE (09:36)
[2022-06-10] MEDS ORDERED: VERAPAMIL 5 MG/2 ML (CALAN) VIAL IV ONE (09:36)
--- NOTE | 2022-06-10 09:54 | Cardiac Procedure Note-CS/ASA ---
Pre-Procedure Note Pre-Op Procedure Note Date of Available H&P: Jun 02, 2022 Date H&P Reviewed: Jun 10, 2022 Time H&P Reviewed: 09:54 History & Physical: H&P Reviewed, Patient Examed, No changes noted Pre-Operative Diagnosis: CAD Conscious Sedation Pre-Proced Time 09:54 ASA Score 3 For ASA 3 and 4: Consider anesthesia and medical clearance. Also, for patients with a history of failed moderate sedation consider anesthesia. Airway Lungs Heart ASA score ASA 1: a normal healthy patient ASA 2: a patient with a mild systemic disease (mid diabetes, controlled hypertension, obesity ASA 3: a patient with a severe systemic disease that limits activity (angina, COPD, prior Myocardial infarction) ASA 4: a patient with an incapacitating disease that is a constant threat to life (CHF, renal failure) ASA 5: a moribund patient not expected to survive 24 hrs. (ruptured aneurysm) ASA 6: a declared brain- patient whose organs are being harvested. For emergent operations, add the letter E after the classification Mallampati Classification Grade 3 Sedation Plan Analgesia, Amnesia, Plan communicated to team members, Discussed options with patient/fam, Discussed risks with patient/fam The patient is an appropriate candidate to undergo the planned procedure, sedation, and anesthesia. The patient immediately re-assessed prior to indication. MARIA G SMITH MD Jun 10, 2022 09:54
--- NOTE | 2022-06-10 10:25 | Discharge Inst-Post CATH ---
Discharge Inst-CATH/EP Problems Reviewed?: Yes Post Cardiac Cath/EP D/C Inst Follow Up/Plan Appointment with Dr. Emanuel's office in 2 to 4 weeks <b>CARDIAC CATH/EP PROCEDURE DISCHARGE INSTRUCTIONS</b> ACTIVITY * Go Home directly and rest. * Limit activity of the leg (or wrist if it was used) for 7 days including aer obics, swimming, jogging, bicycling, etc. * Restrict stair-climbing for 7 days if possible, if not, climb up with your non-cath leg, then bring together on the same step. * Avoid lifting, pushing, pulling or excessive movement of the affected extremi ty for 7 days. * Customary sexual activity may be resumed after 2 days-use caution not to use a position that strains or causes pain to the affected extremity. * No driving for 24 hours. * NO SMOKING. * Avoid straining for bowel movements for 7 days. * Gentle walking on level ground is allowed. * Returning to work will depend on the type of procedure and the results. Your doctor will discuss this with you. CALL YOUR DOCTOR FOR ANY OF THE FOLLOWING: *If bleeding from the puncture site occurs- Apply gentle pressure to site with clean cloth and call your doctor or EMS. * If a knot or lump forms under the skin, increases in size, or causes pain. * If bruising appears to be worsening or moving further down your leg instead of disappearing. * Temperature above 101 F. CARE OF YOUR GROIN INCISION; * Bruising or purple discoloration of the skin near the puncture site is common. * You may shower only, no bathtub bathing for 5 days. Be careful to avoid slipping as your leg may feel stiff. * If a closure device was used on your femoral artery, please see the attached guide regarding care of the device and your leg. * Leave dressing on FOR 24 hours. CARE OF YOUR WRIST INCISION; * Bruising or purple discoloration of the skin near the puncture site is common. * You may shower. * DO NOT submerge wrist. * Leave dressing on FOR 24 hours. MARIA G EMANUEL MD Jun 10, 2022 10:25
--- NOTE | 2022-06-10 10:29 | Cardiac Cath Report ---
Cardiac Cath Report Physician (s)/Media Services Specialist (s) Physician MARIA G SMITH MD Pre-Procedure Diagnosis Pre-Procedure Diagnosis: CAD Post-Procedure Note Procedure Start Date: Jun 10, 2022 Name of Procedure: Left heart catheterization Left ventriculogram Aortic arch angiogram Findings/Procedure Note PROCEDURE NOTE: 77-year-old lady with paroxysmal atrial fibrillation, recurrent chest pain, had multiple ER visits, still having recurrent chest pain. Due to the fact that she is receiving flecainide treatment I decided to proceed with cardiac catheterization possible PTCA. After explaining the procedure to the patient, all pros and cons were explained, all questions were answered. The patient signed the consent and then she was placed in the cardiac catheterization laboratory. Groin was prepped in SL fashion local anesthesia was used. Sheath placed in the right radial artery, there is significant tortuosity in the radial artery I was unable to advance the wire, tried with baby J-wire without success. Sheath was left in the radial artery then I placed a sheath in the right femoral artery, combination of right and left [place] catheter were used to access the right and left coronary system, angiogram was done, pigtail catheter advanced to the left ventricular cavity, left ventriculogram was done. Pullback LV to aorta was done, aortic arch angiogram was done to evaluate the aorta due to the recurrent chest pain. At the end of the procedure the sheath was removed. Closure device was deployed in the right femoral artery, vascular band was used in the right radial artery FINDINGS: Hemodynamics LV 102/16, end-diastolic pressure of 16 Aorta 100/48 mean of 66 ANATOMY: Left Main is free of obstructive disease Left Anterior Descending is smaller artery with no significant obstructive disease Left Circumflex is moderate in size with no obstructive disease Right Coronary Artery is dominant artery with slow flow due to small vessel disease nonobstructive disease LV Gram was done showing normal left ventricular size and contractility, normal ejection fraction. 60% Aorta evaluation done with aortic arch angiogram showing normal aortic arch, no dissection or aneurysm, normal origin of the brachiocephalic artery, left carotid and left subclavian arteries. CONCLUSION: 1. Dominant right coronary system with slow flow in the right coronary artery, no significant obstructive disease was noted in the coronary system 2. Normal left ventricular systolic function, ejection fraction 60%, normal left ventricular end-diastolic pressure 3. Normal aortic arch and great vessels of the neck DISCUSSION AND RECOMMENDATION: Medical therapy is recommended no intervention is warranted Anesthesia Type: Conscious Sedation Estimated blood loss (mL): 20 ml Contrast Amount: 50 ml Total Radiation Dose: 390 mGy Post-Procedure Diagnosis Post-operative diagnosis: Chest pain Coronary artery disease Paroxysmal atrial fibrillation Hypertension Hyperlipidemia MARIA G SMITH MD Jun 10, 2022 10:29
[2022-06-10] MEDS ORDERED: NS IV 1000 ML 1,000 ML IV SCH (10:30)
[2022-06-10] MEDS ORDERED: PATIENT MAY USE OWN MEDS, ALL PO SCH (10:30)
[2022-06-10] MEDS ORDERED: ACETAMINOPHEN 325 MG TABLET PO ONE ×2 (12:45→14:00)
[2022-06-10] MEDS ORDERED: ACETAMINOPHEN 325 MG TABLET ONE (13:03)
== END 2022-06-10 15:15 ==
LOC: CATH 08:23 → SDC 10:43 → CATH 15:15
PROVIDERS: ATTEND Internal Medicine Cardiovascular Disease
DX: I25.10 Atherosclerotic heart disease of native coronary artery without angina pectoris (principal); I48.0 Paroxysmal atrial fibrillation; I10 Essential (primary) hypertension; Z79.899 Other long term (current) drug therapy; E66.9 Obesity, unspecified; Z68.27 Body mass index [BMI] 27.0-27.9, adult; E11.9 Type 2 diabetes mellitus without complications; Z79.84 Long term (current) use of oral hypoglycemic drugs; I65.23 Occlusion and stenosis of bilateral carotid arteries; E78.2 Mixed hyperlipidemia
CPT/HCPCS: 36221; 36415; 71045; 80053; 80061; 85027; 85610; 85730; 87081; 93005; 93458

== ENCOUNTER → 2023-04-06 | Outpatient (CLI) | payer MEDICARE ==
[~2023-04-06] MED LIST changes: +ASCO100024 PO; +CARB15DR OU; +CHOL200059 PO; +DILT180C71 PO; -DILT180C82 PO; +NITR0.4T39 SL; +PRED5DRO17 OS
--- NOTE | 2023-04-06 16:04 | Diagnostic Imaging Report ---
INDICATION: Postmenopausal state COMPARISON: 03/18/2021 FINDINGS: AP Spine L1-L4: [BMD (g/cm2): 1.453] [T-Score: 2.1] [Z-Score: NA] [BMD Previous: 1.33] [BMD % Change: 9.0*] LT Hip Neck: [BMD (g/cm2): 0.834] [T-Score: -1.5] [Z-Score: NA] LT Hip Total: [BMD (g/cm2):0.830] [T-Score:-1.4] [Z-Score: NA] [BMD Previous: 0.856] [BMD % Change: -3.0] RT Hip Neck: [BMD (g/cm2):0.793] [T-Score:-1.8] [Z-Score:NA] RT Hip Total: [BMD (g/cm2):0.829] [T-score:-1.4] [Z-Score:NA] [BMD Previous:0.826] [BMD % Change:0.4] *Indicates significant change from prior examination based on 95% confidence level. World Health Organization criteria for BMD interpretation classify patients as Normal (T-score at or above -1.0), Osteopenic (T-score between -1.0 and -2.5) or Osteoporotic (T-score at or below -2.5). LIMITATIONS AND MODIFICATION: None. FRACTURE RISK (FRAX SCORE): The ten year probability of (%): Major Osteoporotic Fracture: [14.8] Hip Fracture: [3.9] IMPRESSION: 1. Osteopenia (Low bone mass). 2. Bone mineral density within the lumbar spine has significantly increased from the prior examination. Bone mineral density within the bilateral hips has not significantly changed. 3. See below National Osteoporosis Foundation guidelines on when to potentially initiate pharmacologic therapy. Based on the National Osteoporosis Foundation Guidelines, pharmacologic treatment should be initiated in any of the following, unless clinical conditions suggest otherwise: * Any patient with prior fragility fracture of the hip or vertebrae. A spine fracture indicates 5X risk for subsequent spine fracture and 2X risk for subsequent hip fracture. * Osteoporosis (T-score <-2.5). * Postmenopausal women and men age 50 and older with low bone mass/osteopenia (T-score between -1.0 and -2.5) by DXA and 10-year major osteoporotic fracture greater than 20% or a 10-year probability of hip fracture greater than 3%. These fracture risks are supplied above in the FRAX score, if applicable. * Clinician judgement and/or patient preferences may indicate treatment for people with 10-year fracture probabilities above or below these levels. Dictated by: Dictated on workstation # [id number]
--- NOTE | 2023-04-06 16:25 | Diagnostic Imaging Report ---
HIP, LEFT, 2 VIEWS INDICATION: Left hip pain COMPARISON: None available. TECHNIQUE: 2 views left hip FINDINGS: Severe degenerative arthritis of left hip is present. There is a ring of osteophytes around the femoral head-neck junction. No features of avascular necrosis of the femoral head. Degenerative changes are present in both SI joints and at the symphysis pubis. No worrisome focal osseous lesions. IMPRESSION: Severe osteoarthritis of the left hip. Dictated by: Dictated on workstation # [id number]
--- NOTE | 2023-04-06 16:28 | Diagnostic Imaging Report ---
ANKLE, LEFT, 3 VIEWS COMPARISON: None available. INDICATION: Left ankle pain TECHNIQUE: Non-weight bearing AP, oblique, and lateral views. FINDINGS: No fracture or traumatic malalignment. No osteochondral lesion of the talar dome. Normal variant os peroneum. Tiny plantar calcaneal spur. Achilles shadow is normal. IMPRESSION: 1. No osseous abnormality about the ankle. Dictated by: Dictated on workstation # [id number]
== END ==
LOC: RAD 10:02
PROVIDERS: ATTEND Family Medicine
DX: M16.12 Unilateral primary osteoarthritis, left hip (principal); M81.0 Age-related osteoporosis without current pathological fracture; E55.9 Vitamin D deficiency, unspecified; M25.572 Pain in left ankle and joints of left foot; G89.29 Other chronic pain; Z78.0 Asymptomatic menopausal state
CPT/HCPCS: 73502; 73610; 77080

== ENCOUNTER 2023-04-21 01:45 | Emergency (ER) | payer MEDICARE, MEDICAID ==
[~2023-04-21] VITALS: Ht 167.7 cm; Wt 68.0 kg
[2023-04-21 01:51] VITALS: BP 180/85
--- NOTE | 2023-04-21 01:59 | ED General ---
General Stated Complaint: BURNING WITH URINATION Source of Information: Patient History of Present Illness Date Seen by Provider: Apr 21, 2023 Time Seen by Provider: 02:00 Initial Comments Patient is an 78-year-old female who presents to the emergency department with a chief complaint of burning with urination and urinary frequency, onset last night. She states that she worked a lot yesterday and probably did not drink as much water as she should. She does not have history of frequent urinary tract infections, she states she thinks the last 1 may have been about 10 years ago. She denies fevers, chills. She denies back pain. She denies nausea, vomiting. No diarrhea. She has a history of hypertension. No allergies to medications. Has not taken anything for the discomfort. Timing/Duration: 4-6 Hours Severity: Moderate Associated Systoms: Denies Symptoms Allergies and Home Medications Allergies Coded Allergies: No Known Drug Allergies (Unverified , 04/09/17) Patient Home Medication List Home Medication List Reviewed: Yes Apixaban (Eliquis) 5 Mg Tablet, 5 MG PO BID, (Reported) Entered as Reported by: KINDRA CLEMENTE on 06/19/20 1111 Ascorbic Acid (Vitamin C) 1,000 Mg Tablet, 1,000 MG PO DAILY, (Reported) Entered as Reported by: STEVE ROJAS on 06/10/22 0934 Carboxymethylcellulose Sodium (Refresh Tears) 0.5 % Drops, 1 DROP OU DAILY PRN for DRY EYES, (Reported) Entered as Reported by: STEVE ROJAS on 06/10/22 0934 Cephalexin (Cephalexin) 500 Mg Tablet, 500 MG PO TID Prescribed by: VANESSA DUENAS on 04/21/23 0243 Cholecalciferol (Vitamin D3) (Vitamin D3) 50 Mcg (2000 Unit) Tablet, 50 MCG PO DAILY, (Reported) Entered as Reported by: STEVE ROJAS on 06/10/22 0934 Diltiazem HCl (Cardizem Cd) 180 Mg Cap.er.24h, 180 MG PO DAILY, (Reported) Entered as Reported by: PATITO WEBSTER on 01/26/22 0940 Flecainide Acetate (Flecainide Acetate) 50 Mg Tablet, 50 MG PO BID, (Reported) Entered as Reported by: KINDRA CLEMENTE on 06/19/20 1111 Losartan Potassium (Losartan Potassium) 50 Mg Tablet, 50 MG PO 1700, (Reported) Entered as Reported by: PATITO WEBSTER on 01/26/22 09 Meloxicam (Meloxicam) 7.5 Mg Tablet, 7.5 MG PO DAILY PRN for ARTHRITIS PAIN, (Reported) Entered as Reported by: PATITO WEBSTER on 01/26/22 0940 Nitroglycerin (Nitroglycerin) 0.4 Mg Tab.subl, 0.4 MG SL UD PRN for CHEST PAIN, (Reported) Entered as Reported by: STEVE ROJAS on 06/10/22 0931 Prednisolone Acetate (Prednisolone Acetate) 1 % Drops.susp, 1 DROP OS DAILY, (Reported) Entered as Reported by: STEVE ROJAS on 06/10/22 0934 Zinc Gluconate (Zinc) 50 Mg Tablet, 50 MG PO DAILY, (Reported) Entered as Reported by: STEVE ROJAS on 06/10/22 0934 Review of Systems Review of Systems Constitutional: see HPI EENTM: no symptoms reported Respiratory: no symptoms reported Cardiovascular: no symptoms reported Gastrointestinal: abdominal pain Genitourinary: dysuria, frequency : No Musculoskeletal: no symptoms reported Skin: no symptoms reported Past Qumgtnq-Ubirax-Jodugi Hx Immunizations Up To Date Tetanus Booster (TDap): Unknown First/Initial COVID19 Vaccinat: YES Second COVID19 Vaccination Goyo: YES Seasonal Allergies Seasonal Allergies: No Past Medical History Surgery/Hospitalization HX: EYE SURGERY Surgeries: Yes (LYPOMA EXCISED) Lumpectomy Respiratory: No Cardiac: Yes Atrial Fibrillation, Hypertension, Irregular Heartbeat Neurological: No Reproductive Disorders: No Sexually Transmitted Disease: No HIV/AIDS: No Genitourinary: No Gastrointestinal: Yes (EPIGASTRIC PAIN, HX ULCER) Gastroesophageal Reflux, Hiatal Hernia, Ulcer Musculoskeletal: No Endocrine: Yes Diabetes, Non-Insulin dep HEENT: No Loss of Vision: Bilateral Hearing Impairment: Denies Cancer: No Did You Recieve Any Treatments: No Psychosocial: No Integumentary: No Blood Disorders: No Adverse Reaction/Blood Tranf: No Family Medical History Hypertension 19 FATHER No Pertinent Family Hx Physical Exam Vital Signs Vital Signs - First Documented 04/21/23 01:51 Temp 36.5 Pulse 63 Resp 18 B/P (MAP) 180/85 (116) Pulse Ox 96 O2 Delivery Room Air Capillary Refill : Height, Weight, BMI Height: 5'5.00" Weight: 162lbs. 0.0oz. [id number]; 27.54 BMI Method:Stated General Appearance: No Apparent Distress, WD/WN Eyes: Bilateral Eye Normal Inspection, Bilateral Eye PERRL, Bilateral Eye EOMI HEENT: PERRL/EOMI Respiratory: Lungs Clear, Normal Breath Sounds, No Accessory Muscle Use, No Respiratory Distress Cardiovascular: Regular Rate, Rhythm, Normal Peripheral Pulses (2+ radial pulses) Gastrointestinal: Soft, Tenderness (suprapubic tenderness) Back: No CVA Tenderness Extremity: Normal Inspection, Normal Range of Motion, No Pedal Edema Neurologic/Psychiatric: Alert, Oriented x3, No Motor/Sensory Deficits, Normal Mood/Affect Skin: Normal Color, Warm/Dry Progress/Results/Core Measures Suspected Sepsis SIRS Temperature: Pulse: Respiratory Rate: Blood Pressure / Mean: Results/Orders Lab Results Laboratory Tests Test 04/21/23 01:58 Range/Units Urine Color YELLOW Urine Clarity CLEAR Urine pH 7.5 5-9 Urine Specific [place] 1.015 L 1.016-1.022 Urine Protein NEGATIVE NEGATIVE Urine Glucose (UA) NEGATIVE NEGATIVE Urine Ketones NEGATIVE NEGATIVE Urine Nitrite NEGATIVE NEGATIVE Urine Bilirubin NEGATIVE NEGATIVE Urine Urobilinogen 0.2 < = 1.0 MG/DL Urine Leukocyte Esterase 3+ H NEGATIVE Urine RBC (Auto) 2+ H NEGATIVE Urine RBC 5-10 H /HPF Urine WBC 10-25 H /HPF Urine Crystals PRESENT H /LPF Urine Amorphous Sediment FEW ANGELINA PHOSPHATE H /LPF Urine Bacteria MODERATE H /HPF Urine Casts NONE /LPF Urine Mucus SMALL H /LPF Urine Culture Indicated YES My Orders Orders - VANESSA DUENAS MD Ua Culture If Indicated (04/21/23 01:58) Phenazopyridine Tablet (Phenazopyridine (04/21/23 02:15) Urine Culture (04/21/23 01:58) Cephalexin Capsule (Cephalexin Capsule) (04/21/23 02:38) Medications Given in ED Current Medications Medications Dose Ordered Sig/Jazmin Route Start Time Stop Time Status Last Admin Dose Admin Phenazopyridine HCl 100 mg ONCE ONCE PO 04/21/23 02:15 04/21/23 02:16 DC 04/21/23 02:28 100 MG Vital Signs/I&O 04/21/23 01:51 Temp 36.5 Pulse 63 Resp 18 B/P (MAP) 180/85 (116) Pulse Ox 96 O2 Delivery Room Air Capillary Refill : Progress Note : Time: 02:46 Progress Note Patient seen and evaluated by me. Evaluation today includes physical exam, urin alysis. Pertinent physical exam findings well-developed well-nourished 78-year-old female in mild distress due to lower abdominal discomfort and dysuria. Vital signs are stable, she is afebrile. Heart is regular, lungs are clear. Abdomen is mildly tender in the suprapubic region. Differential diagnosis includes urinary tract infection Patient's labs independently reviewed and interpreted by me. Her urinalysis shows 3+ leukocyte Estrace with 5-10 red blood cells and 10-25 white blood cells per high-powered field as well as moderate bacteria. Patient is treated in the emergency department with 100 mg of Pyridium as well as a 500 mg tablet of cephalexin. She is afebrile and nontoxic in appearance. No concerning findings for pyelonephritis. She will be discharged with cephalexin 500 mg 3 times daily for 5 days. She is advised to use Pyridium for the bladder spasm/pain. Return precautions provided in both verbal and written format. All questions are sought and answered. Patient is stable for discharge. Departure Impression Primary Impression: UTI (urinary tract infection) Qualified Codes: N30.01 - Acute cystitis with hematuria Disposition: HOME, SELF-CARE Condition: Stable Departure-Patient Inst. Decision time for Depature: 02:43 Referrals: CHARLI MEDEROS MD (PCP/Family) Primary Care Physician Patient Instructions: Urinary Tract Infection, Adult ED Add. Discharge Instructions: Take the antibiotic, cephalexin 500 mg tablets 3 times daily for 5 days starting tomorrow. Ask your pharmacist to show you where to find the Pyridium (medication for bladder spasms). Take 1 tablet 3 times a day for the next 2 days for the pain with urination. If you develop increased pain, especially with fever or vomiting, please return to the Emergency Department for re-evaluation. Follow up with your primary care doctor as needed/scheduled. Scripts Cephalexin (Cephalexin) 500 Mg Tablet 500 MG PO TID, #15 TAB 0 Refills Prov: VANESSA DUENAS MD 04/21/23 Copy Copies To 1: CHARLI MEDEROS MD, KATHRYN M MD Apr 21, 2023 01:59
[2023-04-21] MEDS ORDERED: PHENAZOPYRIDINE 100 MG TABLET PO ONE (02:15)
[2023-04-21 02:18] LABS: AMORPHOUS SEDIMENT,UR FEW AMOR PHOSPHATE /LPF; BACTERIA,URINE MODERATE /HPF; BILIRUBIN,URINE NEGATIVE (NEGATIVE); CLARITY,URINE CLEAR; COLOR,URINE YELLOW; GLUCOSE, URINE (UA) NEGATIVE (NEGATIVE); KETONES,URINE NEGATIVE (NEGATIVE); LEUKOCYTE ESTERASE ,URINE 3+ (NEGATIVE); NITRITE,URINE NEGATIVE (NEGATIVE); PH,URINE 7.5 (5-9); PROTEIN,URINE NEGATIVE (NEGATIVE)
[2023-04-21] MEDS ORDERED: CEPHALEXIN 250 MG CAPSULE PO STA (02:38)
[2023-04-21] MEDS ORDERED: CEPH500T PO (02:43)
== END 2023-04-21 03:01 | disposition home or self-care (01) ==
LOC: EDUNIT# 01:45 → ER 01:48
DX: N39.0 Urinary tract infection, site not specified (principal)
CPT/HCPCS: 81000; 87077; 87088; 87186; 99283